=== PATIENT | male | born 1965 | race Two or more races ===

== ENCOUNTER 2016-09-13 10:27 | Emergency (ER) | payer OTHER ==
[~2016-09-13] VITALS: Ht 180.3 cm; Wt 81.6 kg
[~2016-09-13 10:27] MED LIST: IBUPROFEN600 MG ORAL
[2016-09-13 10:30] VITALS: BP 114/60
[2016-09-13] MEDS ORDERED: Famotidine 20 MG/ 2ML VIAL IVP ONE (10:30)
--- NOTE | 2016-09-13 10:36 | Emergency Room Report ---
History of Present Illness General Chief Complaint: Alcohol Intoxication Source: Patient, EMS Present Illness HPI The patient brought in by EMS. They claim that he is from a rehabilitation facility for psychiatric patients. Allegedly they were called because of abdominal pain. Patient initially admits to drinking alcohol. He states he's been vomiting. He will not answer if he has abdominal pain at this time. Blood sugar normal in the field. The patient has a history of hypertension and diabetes. He was seen here in the past for headache. Later in discussion with B and C - they state he was disoriented this morning. They deny alcohol. He apparently thought he was at the AL, then pulled off his pants and urinated in a living room. They state he has been altered like this in the past. There has been no change in medication. He takes several psychiatric medications along with meds for diabetes and HTN. Allergies: Coded Allergies: No Known Allergies (Unverified , 06/27/15) Patient History Past Medical History: see triage record Social History: Reports: smoking Social History Narrative Psychiatric B and C Reviewed Nursing Documentation: PMH: Agreed, PSxH: Agreed Nursing Documentation-PMH Past Medical History: No History, Except For Hx Diabetes: Yes History Of Psychiatric Problem: Yes - schizophrenia Review of Systems All Other Systems: limited Physical Exam Vital Signs Date Time Temp Pulse Resp B/P Pulse Ox O2 Delivery O2 Flow Rate FiO2 09/13/16 10:27 98.1 80 14 120/66 100 Room Air Sp02 EP Interpretation: reviewed, normal General Appearance: no apparent distress, Stupor Head: normocephalic Eyes: bilateral eye PERRL, bilateral eye other ENT: moist mucus membranes Neck: full range of motion, supple Respiratory: lungs clear, normal breath sounds Cardiovascular #1: regular rate, rhythm, no edema Cardiovascular #2: 2+ radial (R) Gastrointestinal: normal inspection, normal bowel sounds, non tender, no mass, non-distended Musculoskeletal: back normal, gait/station normal, normal range of motion Neurologic: responsive, DTRs symmetric, sensory intact, other - moving all 4- slurred Psychiatric: depressed affect - with lethargy Skin: normal color, no rash Medical Decision Making Diagnostic Impression: Primary Impression: Altered mental status Qualified Codes: R40.4 - Transient alteration of awareness Additional Impressions: Diabetes Qualified Codes: E11.8 - Type 2 diabetes mellitus with unspecified complications Renal insufficiency Schizoaffective disorder Qualified Codes: F25.9 - Schizoaffective disorder, unspecified ER Course Patient presents with alleged abdominal pain and altered sensorium. He is altered at this time. There is no evidence of any head trauma. Differential includes alcohol intoxication, gastritis, pancreatitis, peptic ulcer disease, gallbladder disease, urinary tract infection, occult hypoglycemia, medication excess. The patient iss altered and needs to have emergent evaluation and observation. Labs will be obtained including blood alcohol. The patient will be treated with IV hydration and Pepcid for the time being. His belly is soft and does not present a surgical problem at the moment. He'll be reassessed when he is more awake. Labs sig for slight leukocytosis, elevated lipase and creat. Alcohol is negative. Discussion with B and C after labs returned. Patient fully awake and requesting to eat and go back to [facility]. No abdominal pain. No vomiting. Concern over AMS which was transient. Night medication, other agents not showing up in tox, occult hypoglycemia all considerations. Consideration for observation in hospital, however, patient is stable at this time and wants to return to [facility]. Election to observe as outpatient. No medical emergency at this time. Laboratory Tests Test 09/13/16 10:50 09/13/16 10:52 Prothrombin Time 10.1 SEC (9.30-11.50) Prothrombin Time INR 1.0 (0.9-1.1) White Blood Count 12.5 K/UL (4.8-10.8) H Red Blood Count 4.67 M/UL (4.70-6.10) L Hemoglobin 15.2 G/DL (14.2-18.0) Hematocrit 45.1 % (42.0-52.0) Mean Corpuscular Volume 97 FL (80-99) Mean Corpuscular Hemoglobin 32.5 PG (27.0-31.0) H Mean Corpuscular Hemoglobin Concent 33.7 G/DL (32.0-36.0) Red Cell Distribution Width 11.8 % (11.6-14.8) Platelet Count 212 K/UL (150-450) Mean Platelet Volume 7.8 FL (6.5-10.1) Neutrophils (%) (Auto) 56.3 % (45.0-75.0) Lymphocytes (%) (Auto) 26.9 % (20.0-45.0) Monocytes (%) (Auto) 11.0 % (1.0-10.0) H Eosinophils (%) (Auto) 4.1 % (0.0-3.0) H Basophils (%) (Auto) 1.8 % (0.0-2.0) Urine Color Yellow Urine Appearance Clear Urine pH 6 (4.5-8.0) Urine Specific [place] 1.015 (1.005-1.035) Urine Protein 1+ (NEGATIVE) H Urine Glucose (UA) 3+ (NEGATIVE) H Urine Ketones 1+ (NEGATIVE) H Urine Occult Blood Negative (NEGATIVE) Urine Nitrite Negative (NEGATIVE) Urine Bilirubin Negative (NEGATIVE) Urine Urobilinogen Normal MG/DL (0.0-1.0) Urine Leukocyte Esterase Negative (NEGATIVE) Urine RBC 0-2 /HPF (0 - 0) H Urine WBC 0-2 /HPF (0 - 0) Urine Squamous Epithelial Cells Occasional /LPF Urine Bacteria Few /HPF (NONE) Sodium Level 133 mEQ/L (135-145) L Potassium Level 4.6 mEQ/L (3.4-4.9) Chloride Level 96 mEQ/L (98-107) L Carbon Dioxide Level 23 mEQ/L (20-30) Anion Gap 14 (5-15) Blood Urea Nitrogen 34 mg/dL (7-23) H Creatinine 1.4 mg/dL (0.7-1.2) H Estimate Glomerular Filtration Rate 53.6 mL/min (>60) Glucose Level 166 mg/dL (74-106) H Calcium Level 9.2 mg/dL (8.6-10.2) Total Bilirubin 0.3 mg/dL (0.0-1.2) Aspartate Amino Transferase (AST) 41 U/L (5-40) H Alanine Aminotransferase (ALT) 15 U/L (3-41) Alkaline Phosphatase 72 U/L (40-129) Total Protein 7.0 g/dL (6.6-8.7) Albumin 3.8 g/dL (3.5-5.2) Globulin 3.2 g/dL Albumin/Globulin Ratio 1.1 (1.0-2.7) Lipase 159 U/L (< 60) H Urine Opiates Screen Negative (NEGATIVE) Urine Barbiturates Screen Negative (NEGATIVE) Phencyclidine (PCP) Screen Negative (NEGATIVE) Urine Amphetamines Screen Negative (NEGATIVE) Urine Benzodiazepines Screen Negative (NEGATIVE) Urine Cocaine Screen Negative (NEGATIVE) Urine Marijuana (THC) Screen Negative (NEGATIVE) Serum Alcohol < 10 mg/dL EKG Diagnostic Results Rate: normal Rhythm: NSR ST Segments: no acute changes Rhythm Strip Diag. Results EP Interpretation: yes Rhythm: NSR, no PVC's, no ectopy, other Chest X-Ray Diagnostic Results EP Interpretation: Yes Findings: no consolidation, no effusion, no pneumothorax, no acute cardiopulmonary disease Number of Views: 1 Last Vital Signs Date Time Temp Pulse Resp B/P Pulse Ox O2 Delivery O2 Flow Rate FiO2 09/13/16 12:19 98.1 76 16 94/74 100 Room Air Status: improved Disposition: ASSISTED LIVING Condition: Improved Andrade Frost M.D. Sep 13, 2016 10:36
[2016-09-13 11:15] LABS: BASOPHILS % (AUTO) 1.8 % (0.0-2.0); EOSINOPHILS % (AUTO) 4.1 % (0.0-3.0); LYMPHOCYTES % (AUTO) 26.9 % (20.0-45.0); MEAN CORPUSCULAR HEMOGLOBIN 32.5 PG (27.0-31.0); MEAN CORPUSCULAR HGB CONC 33.7 G/DL (32.0-36.0); MEAN CORPUSCULAR VOLUME 97 FL (80-99); MEAN PLATELET VOLUME 7.8 FL (6.5-10.1); NEUTROPHILS % (AUTO) 56.3 % (45.0-75.0); PLATELET COUNT 212 K/UL (150-450); RED BLOOD COUNT 4.67 M/UL (4.70-6.10); RED CELL DISTRIBUTION WIDTH 11.8 % (11.6-14.8); WHITE BLOOD COUNT 12.5 K/UL (4.8-10.8)
[2016-09-13 11:16] LABS: APPEARANCE,URINE CLEAR; KETONES,URINE 1+ (NEGATIVE); LEUKOCYTE ESTERASE ,URINE NEGATIVE (NEGATIVE); NITRITE,URINE NEGATIVE (NEGATIVE); PH,URINE 6 (4.5-8.0); PROTEIN,URINE 1+ (NEGATIVE); UROBILINOGEN,URINE NORMAL MG/DL (0.0-1.0)
[2016-09-13 11:22] LABS: PROTHROMBIN TIME 10.1 SEC (9.30-11.50)
[2016-09-13 11:29] LABS: ALANINE AMINOTRANSFERASE 15 U/L (3-41); ALBUMIN/GLOBULIN RATIO 1.1 (1.0-2.7); ALCOHOL < 10 mg/dL; ANION GAP 14 (5-15); ASPARTATE AMINO TRANSFERASE 41 U/L (5-40); CALCIUM 9.2 mg/dL (8.6-10.2); CARBON DIOXIDE 23 mEQ/L (20-30); CHLORIDE 96 mEQ/L (98-107); CREATININE 1.4 mg/dL (0.7-1.2); GLOMERULAR FILTRATION RATE 53.6 mL/min (>60); HEMOLYSIS 9; LIPASE 159 U/L (< 60); POTASSIUM 4.6 mEQ/L (3.4-4.9); SODIUM 133 mEQ/L (135-145)
[2016-09-13 11:32] LABS: BACTERIA,URINE FEW /HPF; RBC,URINE 0-2 /HPF (0 - 0); SQUAMOUS EPITHELIAL CELL,UR OCCASIONAL /LPF (NONE/OCC); WBC,URINE 0-2 /HPF (0 - 0)
[2016-09-13 11:49] VITALS: BP 94/74
[2016-09-13] MEDS ORDERED: ASPIRIN81 MG ORAL (11:49)
[2016-09-13] MEDS ORDERED: NIACIN100 MG ORAL (11:49)
[2016-09-13] MEDS ORDERED: METFORMIN HCL850 M1 ORAL (11:49)
[2016-09-13] MEDS ORDERED: ATORVASTATIN CA40 MG ORAL (11:49)
[2016-09-13] MEDS ORDERED: ONGLYZA5 MG PO (11:49)
[2016-09-13] MEDS ORDERED: LITHIUM CARBON300 MG ORAL (11:49)
[2016-09-13] MEDS ORDERED: LISINOPRIL10 MG ORAL (11:49)
[2016-09-13] MEDS ORDERED: DEPAKOTE250 MG PO (11:49)
[2016-09-13] MEDS ORDERED: FISH OIL500 MG PO (11:49)
[2016-09-13] MEDS ORDERED: BENZTROPINE MESY2 MG ORAL (11:49)
[2016-09-13 12:19] VITALS: BP 94/74
--- NOTE | 2016-09-15 15:20 | Cardiology Report ---
APPROVED REPORT EKG Measurement Heart [id number] MD [id number] Normal sinus rhythm with sinus arrhythmia Normal ECG
== END 2016-09-13 14:03 | disposition home or self-care (01) ==
LOC: EDBD 10:27 → EMR 10:57
DX: R40.4 Transient alteration of awareness (principal); E11.8 Type 2 diabetes mellitus with unspecified complications; F25.9 Schizoaffective disorder, unspecified; N28.9 Disorder of kidney and ureter, unspecified; F17.200 Nicotine dependence, unspecified, uncomplicated; I10 Essential (primary) hypertension
CPT/HCPCS: 36415; 80053; 80300; 81003; 82962; 83690; 85025; 85610; 93005; 96361; 96374; 99284; G0480; S0028; 80329